=== PATIENT | male | born 1955 | race Caucasian/White ===

== ENCOUNTER 2023-12-02 14:05 | Emergency (ER) | payer MEDICARE, OTHER, SELFPAY ==
[2023-12-02 14:12] VITALS: BP 149/80
[2023-12-02 16:22] VITALS: BMI 30.6
[2023-12-02 16:24] VITALS: BP 150/74
--- NOTE | 2023-12-02 16:31 | EDRN ---
Patient ambulated to the bathroom with steady gait. Denied any c/o dizziness. Patient stated that he had a cyst removed from his neck today at the dermatology office and when he got up there was a lot of clear drainage coming from his nose.
[employer] Specialist sent patient to ED for concern of CSF leaking. Patient denies increased neck pain,headache and dizziness.
--- NOTE | 2023-12-02 17:01 | ED.GENMED ---
History of Present Illness
General
Chief Complaint: Nose Bleed
Source: patient
Exam Limitations: none
Time Seen by Provider: 12/02/23 16:43
Travel History
Have you had any contact with someone who has COVID-19?: No
Do you have any symptoms of coronavirus? Fever > 100 degrees, chills, cough, shortness of breath, sore throat, loss of taste or smell, muscle aches, or headache?: No
History of Present Illness
History of Present Illness:
See MDM
Past History
Past History
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 No previous back or neck injury. No know injury in life.) and Other (Is
post aVR with a bio valve, status post aortic root graft, hypertension, TIAs)
ED Past Surgical History: None
Social History
Tobacco: Non-smoker
Alcohol: Daily
Personal: Single
Living: with family
Employment: Employed
Family History
Family History: Other (Father with SC x2)
Phy Exam
Physical Exam
Physical Exam:
See MDM
Course
Orders/Labs/Results
Orders:
Orders
12/02/23 17:02
CT Facial Bones W/o Iv Contras Urgent
Comment: Sent in to r/o CSF leak
Reason For Exam: rhinorrhea, recent dental procedure
12/02/23 17:07
Add On- LAB Urgent
Tests Added?: Beta-2 transferrin
Vital Signs
Initial and Last Documented VS:
Initial Vital Signs
Temp Pulse Resp BP Pulse Ox
98.0 F 70 16 149/80 98
12/02/23 14:12 12/02/23 14:12 12/02/23 14:12 12/02/23 14:12 12/02/23 14:12
Last Documented Vital Signs
Temp Pulse Resp BP Pulse Ox
98.0 F 63 16 150/74 96
12/02/23 14:12 12/02/23 16:24 12/02/23 16:24 12/02/23 16:24 12/02/23 16:24
MDM/Problems Addressed
Differential Diagnosis Includes:
HPI and MDM Narrative:
68-year-old male presenting from his dermatology office to rule out a CSF leak from his nose. Patient had a sebaceous cyst removed. During the procedure, patient had copious amounts of drainage from his nose. The job developer for deaf adults was concerned
because it did appear blood tinged. Patient denies any recent trauma. On arrival, patient states the rhinorrhea is getting somewhat better.
However, after leaning his left nose forward for several minutes, it started to drip again.
The filter paper test was performed. There was no blood in the rhinorrhea to adequately assess for halo around the blood. Will try and obtain the fluid to send out for beta-2 transferrin. Case discussed with radiology. Will discuss CT
maxillofacial.
Patient midst of blood in the rhinorrhea earlier today. There is excoriation to the right nare which could represent the blood
Patient is sitting in bed comfortably. He stands up with no issues. He denies headache or double vision
Physical exam
General: Well appearing and non-toxic
HEENT: protecting airway. Excoriation to right nare. Clear rhinorrhea noted
Neck: supple
CV: No evidence of cyanosis
Resp: No accessory muscle use
Abd: Non-distended
Extremities: No deformities
Neuro: alert
Psych: Normal affect
Skin: Intact
Problems Addressed including Acute and Chronic Conditions affecting care:
1. Rhinorrhea
Acuity: acute
Prognosis: stable
Details: Given that the bleeding has resolved, doubt CSF leak. However, will try and send off enough for beta-[address] maxillofacial
Updates
CT negative for evidence pathology that could cause CSF leak. Discussed incidental findings on CT. Patient given printout of CT.
Discussed with patient that someone should call him if his beta-2 transferrin test is positive but discussed also having him follow-up with his PCP
Differential Diagnosis (but not limited to): Rhinorrhea, CSF leak, nosebleed
Testing considered: Blood work
Drug therapy (if applicable): OTC meds, please see d/c instruction regarding Rx drugs
Amount and/or Complexity of Data Reviewed
Clinical info obtained from: Patient
External data reviewed: N/A
Labs I independently reviewed (but not limited to): N/A
Radiology: N/A
Pulse Ox: not hypoxic
EKG independently reviewed: N/A
Blood Donor Recruiter Supervisor: N/A
Critical Care: N/A
Risk of Complication:
Social Determinants of health: Good social support
Discussed with other providers: N/A
Escalation of Care includes Admit/Obs: After being observed in the Emergency Department, pt stable for discharge.
Occasional wrong word or 'sound a like' substitutions may have occurred due to the inherent limitations of voice recognition software. Read the chart carefully and recognize, using context, where substitutions have occurred.
*Critical Care Note
Total Time (30-74mins, 75-104mins- exclusive of procedures): Not Applicable
ED Attending Note
-
Portions of this chart may have been created with voice recognition software.� Occasional wrong word or��sound alike� substitutions may have occurred due to the inherent limitations of voice recognition software.
Discharge Plan
Departure
Patient Disposition: Home (Routine Discharge)
Date of Disposition: 12/02/23
Time of Disposition: 18:48
Patient with high blood pressure during this ER visit?: Yes
Discharge Problem:
Rhinorrhea
Instructions: BLOOD PRESSURE
Prescriptions:
No Action
aspirin 325 MG tablet
325 mg PO DAILY
Patient Comments:
pt took for procedure.
losartan 25 MG tablet
50 mg PO DAILY
Patient Comments:
pt unsure of dose.
clopidogrel 75 MG tablet
75 mg PO DAILY
Saw [employer]
PO DAILY
Tumeric
PO DAILY
hydrocodone-acetaminophen [Vicodin] 1 EACH tablet
1 ea PO Q4HPRN PRN (Reason: pain) Qty: 15 0RF
Referrals:
Alf Israel MD [Family Provider] -
Activity Restrictions/Additional Instructions:
As we discussed, the CT of your face shows no pathology that could result in a spinal leak into your nose. Regardless, the blood work is still pending. Please have this followed up with your primary care doctor return for worsening symptoms.
Interventions
Interventions:
*Risk Screen - Suicide Last Done: 12/02/23 16:22
*General Assessment Last Done: 12/02/23 16:22
*Neglect/Abuse Screening Last Done: 12/02/23 16:22
ED- Fall Risk Assessment Last Done: 12/02/23 16:22
*ED COVID-19 Vaccine History Last Done: 12/02/23 14:12
ED-EENT Assessment Last Done: 12/02/23 16:22
== END 2023-12-02 19:24 | disposition home or self-care (01) ==
LOC: EMR 14:05
PROVIDERS: EMERGENCY PHYSICIAN Student in an Organized Health Care Education/Training Program; FAMILY PHYSICIAN Family Medicine
DX: J34.89 Other specified disorders of nose and nasal sinuses (principal); S00.31XA Abrasion of nose, initial encounter; X58.XXXA Exposure to other specified factors, initial encounter; R01.1 Cardiac murmur, unspecified; Q76.49 Other congenital malformations of spine, not associated with scoliosis; Z98.890 Other specified postprocedural states; Z79.82 Long term (current) use of aspirin
CPT/HCPCS: 99284; 70486

== ENCOUNTER → 2024-01-02 15:02 | Outpatient (REF) | payer MEDICARE, OTHER, SELFPAY | LOC: DHCBS HW 15:02 | PROVIDERS: ATTENDING PHYSICIAN Internal Medicine Cardiovascular Disease; FAMILY PHYSICIAN Nurse Practitioner Family | DX: Z95.2 Presence of prosthetic heart valve (principal) | CPT/HCPCS: 93306 ==

== ENCOUNTER → 2024-12-29 15:56 | Outpatient (REF) | payer MEDICARE, OTHER, SELFPAY | LOC: HWRCS 15:56 | PROVIDERS: ATTENDING PHYSICIAN Internal Medicine Cardiovascular Disease; FAMILY PHYSICIAN Nurse Practitioner Family | DX: Z95.2 Presence of prosthetic heart valve (principal) | CPT/HCPCS: 93306 ==